=== PATIENT | female | born 1955 | race Caucasian/White ===

== ENCOUNTER 2019-08-16 20:51 | Emergency (ER) | payer MEDICAID ==
[2019-08-16] MEDS ORDERED: Acetaminophen/oxyCODONE 325-5 MG Tab PO ONE (21:10)
[2019-08-16] MEDS ORDERED: Cyclobenzaprine 10 MG Tab PO ONE (21:12)
[2019-08-16] MEDS ORDERED: Ketorolac 60 MG/2 ML SDV IM ONE (21:22)
--- NOTE | 2019-08-16 22:23 | EDM.PDOC ---
ED HPI GENERAL MEDICAL PROBLEM - General Chief Complaint: Back Pain or Injury Stated Complaint: Neck and RUE pain Time Seen by Provider: 08/16/19 21:15 Source of Information: Reports: Patient History Limitations: Reports: No Limitations - History of Present Illness INITIAL COMMENTS - FREE TEXT/NARRATIVE: Patient presented to the ED because of neck and RUE pain. She described the pain as sharp,10/10 coming from the right tosha RUE.e of her neck radiating towards the RUE. He was seen in the clinic and was prescribed norco which she took 1 tablet tonight without any relief. She was also sen by the chiropractor which helped a little. There is no recent trauma or injury. right upper back Pain Score (Numeric/FACES): 10 - Related Data Allergies Allergy/AdvReac Type Severity Reaction Status Date / Time No Known Allergies Allergy Verified 08/16/19 21:25 Home Meds: Home Meds Cyclobenzaprine [Flexeril] 10 mg PO TID PRN #30 tab 08/16/19 [Rx] predniSONE [Prednisone] 40 mg PO DAILY #10 tablet 08/16/19 [Rx] Past Medical History Cardiovascular History: Reports: Hypertension [employer] History: Reports: Endocrine/Metabolic History: Reports: Diabetes, Type II, Hypothyroidism Social & Family History - Family History Family Medical History: Noncontributory - Tobacco Use Smoking Status *Q: Never Smoker Second Hand Smoke Exposure: No - Caffeine Use Caffeine Use: Reports: Coffee, Soda - Recreational Drug Use Recreational Drug Use: No ED ROS GENERAL - Review of Systems Review Of Systems: See Below Constitutional: Reports: No Symptoms HEENT: Reports: No Symptoms Respiratory: Reports: No Symptoms Cardiovascular: Reports: No Symptoms Endocrine: Reports: No Symptoms GI/Abdominal: Reports: No Symptoms : Reports: No Symptoms Musculoskeletal: Reports: Neck Pain, Arm Pain Skin: Reports: No Symptoms Neurological: Reports: No Symptoms ED EXAM, UPPER BACK/NECK PAIN - Physical Exam Exam: See Below Exam Limited By: No Limitations General Appearance: Alert, WD/WN, No Apparent Distress Ears Exam: Normal External Exam, Normal Canal, Hearing Grossly Normal Nose Exam: Normal Inspection, Normal Mucousa, No Blood Throat/Mouth Exam: Normal Inspection, Normal Lips, Normal Teeth, Normal Gums Head Exam: Atraumatic, Normocephalic Neck Exam: Non-Tender, Full Range of Motion, Normal Alignment, Normal Inspection Nexus Criteria: Posterior, Midline Cervical Tenderness. 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 Course - Vital Signs Text/Narrative:: toradol 60 mg IM x1 flexeril 10 mg po x1 percocet 5/325, 2 po x1 dose Last Recorded V/S: Last Vital Signs Temp 36.6 C 08/16/19 21:01 Pulse 77 08/16/19 21:01 Resp 16 08/16/19 21:01 BP 157/82 H 08/16/19 21:01 Pulse Ox 98 08/16/19 21:01 - Orders/Labs/Meds Meds: Medications Discontinued Medications Generic Name Dose Route Start Last Admin Trade Name Freq PRN Reason Stop Dose Admin Cyclobenzaprine HCl 10 mg 08/16/19 21:12 08/16/19 21:28 Flexeril PO 08/16/19 21:13 10 mg ONETIME ONE Administration Ketorolac Tromethamine 60 mg 08/16/19 21:22 08/16/19 21:28 Toradol IM 08/16/19 21:23 60 mg ONETIME ONE Administration Oxycodone/Acetaminophen 2 tab 08/16/19 21:10 08/16/19 21:27 Percocet 325-5 Mg PO 08/16/19 21:11 2 tab ONETIME ONE Administration Departure - Departure Time of Disposition: 22:15 Disposition: Home, Self-Care 01 Condition: Good Clinical Impression: Radiculopathy of cervical spine - Discharge Information Prescriptions: Cyclobenzaprine [Flexeril] 10 mg PO TID PRN #30 tab PRN Reason: Spasms predniSONE [Prednisone] 40 mg PO DAILY #10 tablet Instructions: Cervical Radiculopathy Referrals: Halle Wallace, [employer] [Primary Care Provider] - Forms: ED Department Discharge Additional Instructions: please read discharge instructions on cervical radiculopathy apply ice or heat whichever makes the pain feel better prednisone 40 mg every morning for 5 days flexeril 10 mg every 8 hours as needed for muscle spasm hydrocodone, take 2 every 4-6 hours for pain that you can't tolerate Sepsis Event Note - Evaluation Sepsis Screening Result: No Definite Risk - Focused Exam Vital Signs: Vital Signs Temp Pulse Resp BP Pulse Ox 08/16/19 21:01 36.6 C 77 16 157/82 H 98 Date Exam was Performed: 08/16/19 Time Exam was Performed: 22:24
== END 2019-08-16 22:34 | disposition home or self-care (01) ==
LOC: FB.ED 20:51
DX: M54.12 Radiculopathy, cervical region (principal); I10 Essential (primary) hypertension; E11.9 Type 2 diabetes mellitus without complications; Z79.899 Other long term (current) drug therapy
CPT/HCPCS: 96372; 99283-25; A9270-GY; J1885